=== PATIENT | male | born 1945 | race Caucasian/White ===

== ENCOUNTER 2021-05-01 09:42 | Emergency (ER) | payer OTHER ==
[2021-05-01] MEDS ORDERED: morphine CARPU-JECT 4 MG/1 ML DISP.SYRIN IVPUSH ONE (10:15)
[2021-05-01] MEDS ORDERED: ACETAMINOPHEN 1000 MG/100 ML BAG IVPB ONE (10:20)
[2021-05-01 10:21] VITALS: TEMP 98.6; BMI 34.2
[2021-05-01] MEDS ORDERED: morphine SULFATE 4 MG/ML VIAL ONE (11:09)
[2021-05-01] MEDS ORDERED: DIPHTH,PERTUSS(ACELL),TET 0.5 ML DISP.SYRIN IM ONE ×2 (11:18→12:51)
[2021-05-01 11:45] LABS: PROTHROMBIN TIME (PATIENT) 11.5 SEC (9.7-13.0)
[2021-05-01 11:59] LABS: CHLORIDE 107 mmol/L (98-107); SODIUM 140 mmol/L (136-145)
[2021-05-01 12:00] LABS: ALBUMIN 3.8 g/dl (3.4-5.0); ANION GAP 5 MMOL/L (8-16); CALCIUM 9.1 mg/dL (8.5-10.1); CO2 28 mmol/L (21-32); GLUCOSE,RANDOM 114 mg/dL (74-106)
[2021-05-01 12:01] LABS: BLOOD UREA NITROGEN 16.9 mg/dL (7-18)
[2021-05-01 12:03] LABS: CREATININE 0.8 mg/dL (0.55-1.3)
[2021-05-01 12:04] LABS: SGOT/AST 26 U/L (15-37); SGPT/ALT 31 U/L (13-61)
[2021-05-01 12:05] LABS: BILIRUBIN,TOTAL 0.3 mg/dL (0.2-1); TOT PROT 6.8 g/dl (6.4-8.2)
[2021-05-01 12:06] LABS: ALK PHOS 76 U/L (45-117)
[2021-05-01 12:24] LABS: BASO % 0.6 % (0-2.0); EOS % 2.3 % (0-4.5); HEMATOCRIT 41.3 % (35.4-49); HEMOGLOBIN 13.9 GM/dL (11.7-16.9); LYMPH % 22.2 % (8-40); MCH 26.9 pg (25.7-33.7); MCHC 33.6 g/dl (32.0-35.9); MEAN CELL VOLUME 80.2 fl (80-96); MEAN PLT VOLUME 8.6 fl (7.5-11.1); MONO % 7.2 % (3.8-10.2); NEUT % 67.7 % (42.8-82.8); PLATELET COUNT 257 10^3/uL (134-434); RBC 5.15 M/mm3 (4.00-5.60); RDW 13.1 % (11.9-15.9); WHITE BLOOD COUNT 9.5 K/mm3 (4.0-10.0)
[2021-05-01 13:15] VITALS: BP 173/84; PULSE 56
== END 2021-05-01 13:15 | disposition home or self-care (01) ==
LOC: JER 09:42
PROC: 3E0333Z Introduction of Anti-inflammatory into Peripheral Vein, Percutaneous Approach (ICD-10-PCS; principal; 2021-05-01)
PROC: 3E0234Z Introduction of Serum, Toxoid and Vaccine into Muscle, Percutaneous Approach (ICD-10-PCS; 2021-05-01)
DX: M79.651 Pain in right thigh (principal); V43.52XA Car driver injured in collision with other type car in traffic accident, initial encounter
CPT/HCPCS: 36415; 71045-TC-FY; 72170-TC-FY; 73552-TC-RT-FY; 73562-TC-RT-FY; 80053; 82550; 82553; 84484; 85025; 85610; 86850; 86900; 86901; 90715; 93005; 93010; 99285-25; J0131